=== PATIENT | female | born 1990 | race Two or more races ===

== ENCOUNTER → 2020-11-06 | Emergency (ER) | payer OTHER ==
[~2020-11-06] VITALS: Ht 160 cm; Wt 72.6 kg
[~2020-11-06] MED LIST: CLEOCIN HCL300 MG PO; INTESTINEX680 M2 PO; NAPROXEN500 MG PO
== END | disposition home or self-care (01) ==
LOC: ER 16:48
DX: K08.89 Other specified disorders of teeth and supporting structures (principal)